=== PATIENT | female | born 1950 | race African-American/Black ===

== ENCOUNTER 2021-05-29 03:50 | Emergency (ER) | payer MEDICARE ==
[~2021-05-29 03:50] MED LIST: AMLODIPINE-BEN1 EACH PO; CO Q-10200 MG PO; DULOXETINE HCL60 MG PO; ESOMEPRAZOLE MA40 MG PO; FEOSOL325 MG PO; IRON325 M1 PO; OS-CAL500 MG PO; OXYCODONE-ACET1 EAC1 PO; POTASSIUM CHLO20 ME1 PO; ROSUVASTATIN CA20 MG PO; VITAMIN D3125 MCG PO; XARELTO10 MG PO
[2021-05-29] MEDS ORDERED: PREDNISONE 20MG20 MG PO (08:16)
== END 2021-05-29 08:36 | disposition home or self-care (01) ==
LOC: FER 03:50
DX: T78.3XXA Angioneurotic edema, initial encounter (principal); I10 Essential (primary) hypertension; Z88.5 Allergy status to narcotic agent; Z79.899 Other long term (current) drug therapy; Z79.82 Long term (current) use of aspirin
CPT/HCPCS: 96372; J0171; J1200; J2930

== ENCOUNTER → 2021-07-24 | Day surgery (SDC) | payer MEDICARE ==
[~2021-07-24] VITALS: Ht 150 cm; Wt 76.0 kg
[~2021-07-24] MED LIST changes: +DILTIAZEM 24HR180 M1 PO; +HCTZ25 MG PO; +NORCO 5/3251 EACH PO; +PREDNISONE 20MG20 MG PO
== END | disposition home or self-care (01) ==
LOC: FAS 05:49
DX: M24.662 Ankylosis, left knee (principal); Z96.652 Presence of left artificial knee joint; G89.18 Other acute postprocedural pain; I10 Essential (primary) hypertension; E78.00 Pure hypercholesterolemia, unspecified; K21.9 Gastro-esophageal reflux disease without esophagitis; Z88.5 Allergy status to narcotic agent; Z88.6 Allergy status to analgesic agent; Z88.8 Allergy status to other drugs, medicaments and biological substances; Z79.899 Other long term (current) drug therapy
CPT/HCPCS: J2250; J2704; J2795; J7120